=== PATIENT | female | born 2000 ===

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

== ENCOUNTER 2019-01-23 19:08 | Emergency (ER) | payer OTHER ==
[2019-01-23 19:17] VITALS: BMI 30.9
[2019-01-23 19:18] VITALS: RESP 18
--- NOTE | 2019-01-23 19:38 | ED PDOC ---
Arrival/HPI - General Chief Complaint: Upper Extremity Problem/Injury Time Seen by Provider: 01/23/19 19:19 Historian: Patient - History of Present Illness Narrative History of Present Illness (Text): 01/23/19 19:35 18 yo F c/o L shoulder pain x 1.5 wks. Reports pain radiates down the L arm to the L fingers. Reports no trauma, injury, numbness, weakness, fever, chills, CP, SOB, back pain, neck pain, heavy lifting, repetitive movements. YUNG Sommer Past Medical History - Infectious Disease Hx of Infectious Diseases: None - Cardiac Hx Cardiac Disorders: No - Pulmonary Hx Respiratory Disorders: No - Neurological Hx Neurological Disorder: No - HEENT Hx HEENT Disorder: No - Renal Hx Renal Disorder: No - Endocrine/Metabolic Hx Endocrine Disorders: No - Hematological/Oncological Hx Blood Disorders: No - Integumentary Hx Dermatological Disorder: No - Musculoskeletal/Rheumatological Hx Musculoskeletal Disorders: No - Gastrointestinal Hx Gastrointestinal Disorders: No - Genitourinary/Gynecological Hx Genitourinary Disorders: No - Psychiatric Hx Anxiety: Yes Hx Bipolar Disorder: Yes Hx Substance Use: No - Past Surgical History Past Surgical History: No Previous - Anesthesia Hx Anesthesia: No Hx Anesthesia Reactions: No Hx Malignant Hyperthermia: No - Suicidal Assessment Feels Threatened In Home Enviroment: No Family/Social History Family/Social History: No Known Family HX Smoking Status: Heavy Smoker > 10 Cigarettes Daily Hx Alcohol Use: No (occasionally) Hx Substance Use: No Allergies/Home Meds Allergies/Adverse Reactions: Allergies No Known Allergies Allergy (Verified 05/18/18 13:07) Home Medications: Home Meds Medication Instructions Recorded Confirmed LORazepam [Ativan] 1 mg PO PRN PRN 02/14/15 05/18/18 Review of Systems - Review of Systems Constitutional: absent: Fatigue, Fevers Respiratory: absent: SOB Cardiovascular: absent: Chest Pain, Palpitations Musculoskeletal: Arthralgias. absent: Back Pain, Neck Pain, Joint Swelling, Myalgias Skin: absent: Rash, Skin Lesions Neurological: absent: Headache, Dizziness Physical Exam Vital Signs Pulse Resp BP Pulse Ox 01/23/19 19:17 82 18 126/76 99 Temperature: Afebrile Blood Pressure: Normal Pulse: Regular Respiratory Rate: Normal Appearance: Positive for: Well-Appearing, Non-Toxic, Comfortable Pain Distress: None Mental Status: Positive for: Alert and Oriented X 3 - Systems Exam Head: Present: Atraumatic, Normocephalic Neck: Present: Normal Range of Motion. No: Meningeal Signs, Lymphadenopathy Respiratory/Chest: Present: Clear to Auscultation, Good Air Exchange. No: Respiratory Distress, Accessory Muscle Use Cardiovascular: Present: Regular Rate and Rhythm, Normal S1, S2. No: Murmurs Back: Present: Normal Inspection. No: Midline Tenderness Upper Extremity: Present: Normal Inspection, Normal ROM, NORMAL PULSES, Neurovascularly Intact, Capillary Refill < 2s, Norm 2-Pt Discrimination. No: Cy anosis, Edema, Tenderness, Swelling, Erythema, Temperature Abnormalties, Deformity Lower Extremity: Present: Normal Inspection. No: Edema Neurological: Present: GCS=15, CN II-XII Intact, Speech Normal, Motor Func Grossly Intact, Normal Sensory Function Skin: Present: Warm, Dry, Normal Color. No: Rashes Psychiatric: Present: Alert, Oriented x 3, Normal Insight, Normal Concentration Medical Decision Making ED Course and Treatment: 01/23/19 19:39 XR L shoulder : no fracture, no dislocation. XR results d/w the patient. Diagnosis of possible bursitis d/w the patient. Advised RICE. Sling applied. Advised to follow up with referral physician in 1-2 days without fail. Advised to take medication as prescribed. Return to the emergency room at any time for any new or worsening symptoms. Patient states she fully agrees with and understands discharge instructions. States that she agrees with the plan and disposition. Verbalized and repeated discharge instructions and plan. I have given the patient opportunity to ask any additional questions. - RAD Interpretation Radiology Orders: 01/23/19 19:34 SHOULDER LEFT [RAD] Stat - PA / MUSIC TEACHER / Resident Statement MD/DO has reviewed & agrees with the documentation as recorded. Disposition/Present on Arrival - Present on Arrival Any Indicators Present on Arrival: No History of DVT/PE: No History of Uncontrolled Diabetes: No Urinary Catheter: No History of Decub. Ulcer: No History Surgical Site Infection Following: None - Disposition Have Diagnosis and Disposition been Completed?: Yes Diagnosis: Left shoulder pain, Bursitis Disposition: HOME/ ROUTINE Disposition Time: 21:00 Patient Plan: Discharge Condition: STABLE Discharge Instructions (ExitCare): Bursitis (DC), Shoulder Pain (DC) Additional Instructions: Thank you for letting us take care of you today. You were treated for left shoulder pain, likely bursitis. The emergency medical care you received today was directed at your acute symptoms. Take medication as prescribed. Return to the Emergency Department if your symptoms worsen, do not improve, or if you have any other problems. Please follow up with referral doctor in 2 days for re-evaluation and follow up. Bring any paperwork you were given at discharge with you along with any medications you are taking to your follow up visit. Our treatment cannot replace ongoing medical care by a primary care provider (PCP) outside of the emergency department. Prescriptions: Naproxen 500 mg PO BID PRN #20 tablet PRN Reason: Pain, Moderate (4-7) Referrals: Neena Sommer MD [Primary Care Provider] - Follow up with primary Donna Reyes MD [Staff Provider] - Follow up with primary Forms: [employer] (Armenian), WORK NOTE, SCHOOL NOTE
[2019-01-23 21:08] VITALS: BP 121/75; PULSE 80; TEMP 97.9; O2SAT 100
--- NOTE | 2019-01-24 18:08 | RAD ---
Date of service: 01/23/2019 PROCEDURE: Radiographs of the Left Shoulder HISTORY: pain COMPARISON: No prior. TECHNIQUE: 3 views obtained. FINDINGS: BONES: Normal. No fracture. JOINTS: Normal. Glenohumeral and acromioclavicular joints preserved. No osteoarthritis. SOFT TISSUES: Normal. OTHER FINDINGS: None. IMPRESSION: Normal radiographs of the left shoulder.
== END 2019-01-23 21:13 | disposition home or self-care (01) ==
LOC: ED 19:08
DX: M25.512 Pain in left shoulder (principal); M71.9 Bursopathy, unspecified; F17.210 Nicotine dependence, cigarettes, uncomplicated